=== PATIENT | female | born 1975 | race Caucasian/White ===

== ENCOUNTER 2024-03-31 19:54 | Emergency (ER) | payer OTHER, SELFPAY ==
[2024-03-31 20:03] VITALS: BP 134/66
--- NOTE | 2024-04-01 01:05 | EDRN ---
multiple issues past that. Pt feels pressure L side of head. Pt c/o nausea. Pt has L side head and posterior neck and even inside throat. Pt has a normal twitch. Tenderness to palp L side.
[2024-04-01 01:09] VITALS: BP 134/76
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
[2024-04-01 01:11] VITALS: BMI 22.6
[2024-04-01] MEDS: FLEXERIL 10 MG PO (03:07)
[2024-04-01 03:10] VITALS: BP 129/73
== END 2024-04-01 03:10 | disposition home or self-care (01) ==
LOC: EMR 19:54
PROVIDERS: EMERGENCY PHYSICIAN Student in an Organized Health Care Education/Training Program; FAMILY PHYSICIAN Student in an Organized Health Care Education/Training Program
DX: M43.6 Torticollis (principal); R51.9 Headache, unspecified; F43.10 Post-traumatic stress disorder, unspecified; F41.9 Anxiety disorder, unspecified; F90.9 Attention-deficit hyperactivity disorder, unspecified type; Z82.49 Family history of ischemic heart disease and other diseases of the circulatory system; Z83.3 Family history of diabetes mellitus; Z90.49 Acquired absence of other specified parts of digestive tract
CPT/HCPCS: 99282

== ENCOUNTER 2024-09-01 10:37 | Emergency (ER) | payer OTHER, SELFPAY ==
[2024-09-01 10:44] VITALS: BP 144/90
[2024-09-01 11:16] VITALS: BP 100/64
[2024-09-01 11:19] LABS: % Basophils 0.3 % (0-2); % Eosinophils 0.6 % (0-6); % Immature Granulocytes 0.1 % (0-0.5); % Lymphocytes 17.9 % (20.5-51.1); % Monocytes 4.9 % (1.7-9.3); % Neutrophils 76.2 % (42.2-75.2); Absolute Lymphocytes 1.3 10^3/uL (1.2-3.4); Absolute Monocytes 0.4 10^3/uL (0.1-0.6); Absolute Neutrophils 5.5 10^3/uL (1.4-6.5); Hematocrit 39.8 % (37.0-47.0); Hemoglobin 13.7 g/dL (12.0-16.0); Mean Corp Hgb Conc. 34.4 g/dL (33.0-37.0); Mean Corpuscular Hgb 29.7 pg (27.0-31.0); Mean Corpuscular Volume 86.1 fL (81.0-99.0); Mean Platelet Volume 11.4 fL (7.4-10.4); Nucleated Red Blood Cells % 0 %; Platelet Count 202 10^3/uL (130-400); Red Blood Cell Count 4.62 10^6/uL (4.20-5.40); White Blood Cell Count 7.2 10^3/uL (4.8-10.8)
[2024-09-01 11:33] LABS: ALT (SGPT) 11 U/L (0-35); AST (SGOT) 20 U/L (14-36); Albumin 4.5 g/dl (3.5-5.0); Alkaline Phosphatase 52 U/L (38-126); Blood Urea Nitrogen 9 mg/dl (7-17); Calcium 9.3 mg/dl (8.4-10.2); Carbon Dioxide 26 mmol/L (22-30); Chloride 105 mmol/L (98-107); Glucose 104 mg/dl (70-99); Potassium 4.5 mmol/L (3.5-5.1); Sodium 138 mmol/L (135-145); Total Bilirubin 0.5 mg/dl (0.2-1.3); Total Protein 7.1 g/dl (6.3-8.2); eGFR > 60.00
[2024-09-01 11:41] VITALS: BMI 21.0
[2024-09-01 12:30] LABS: Troponin I < 0.012 ng/ml
--- NOTE | 2024-09-01 13:52 | ED.GENMED ---
History of Present Illness
General
Chief Complaint: Chest Pain
Source: patient
Exam Limitations: none
Time Seen by Provider: 09/01/24 13:17
History of Present Illness
History of Present Illness:
49-year-old female otherwise medically healthy presents with complaints of chest tightness and difficulty taking a deep breath onset last evening. She does have history of anxiety. She is on a control patch. No recent travel or surgery. No
leg swelling or calf pain. This discomfort started when she found out her was having an affair. The pain does not radiate to the back but is centered in the chest that occasionally radiates to the left side. She also felt that her heart
rate was fast and she was having extra strong heartbeats. She took an Inderal last evening with some relief. She did screen positive for depression at triage however she has no thoughts of hurting yourself. She is going through a rough time and
would prefer not to be experiencing this however she denies any thoughts of harming herself or others.
Past History
Past History
ED Past Medical History: Other (Ectopic pregnancies) and Other (PTSD, questionable of a possible autoimmune disease which is being worked up by rheumatology)
ED Past Surgical History: Other; Negative Appendectomy, Bowel resection or Cholecystectomy
Social History
Tobacco: Non-smoker
Alcohol: Occasional
Drug: None
Personal:
Living: with family
Employment: Employed
Family History
Family History: Other (CAD, diabetes, rheumatoid arthritis)
Phy Exam
Physical Exam
Physical Exam:
General: Well-appearing female no acute respiratory distress
HEENT: Normocephalic atraumatic
Heart: Regular rate and rhythm no murmurs lungs: Clear no wheeze
Extremities: No cyanosis or edema no calf tenderness
Psychiatric exam: Calm and cooperative denying thoughts of harming self or others. She does admit to depression. She admits to anxiety.
Scores
Heart Score for Chest Pain Patients
STEMI patient?: No
History: Slightly or Non-Suspicious
ECG: Normal
Age: >45 - <65 years
Risk Factors: No Risk Factors
Troponin: </= Normal Limit
Heart Score for Chest Pain Patients: 1
Heart Score Risk: 2.5% MACE over next 6 weeks
Course
Orders/Labs/Results
Orders:
Orders
09/01/24 10:38
Electrocardiogram (*1) Urgent
Reason for Study: Chest Pain
EKG- Treatment ONCE
09/01/24 10:49
1:1 Observation - Suicide/ Violent Behavior As Directed
Crisis Consult Urgent
Reason for Consult: depression
09/01/24 10:57
Complete Blood Count/With Diff Urgent
Comprehensive Metabolic Panel Urgent
Troponin I Urgent
09/01/24 14:22
D-Dimer Urgent
Abnormal Lab Results
09/01/24
10:57
MPV 11.4 H fL
(7.4-10.4)
Neutrophils % 76.2 H %
(42.2-75.2)
Lymphocytes % 17.9 L %
(20.5-51.1)
Glucose 104 H mg/dl
(70-99)
09/01/24 10:57
09/01/24 10:57
Vital Signs
Initial and Last Documented VS:
Initial Vital Signs
Temp Pulse Resp BP Pulse Ox
98.4 F 74 18 144/90 99
09/01/24 10:44 09/01/24 10:44 09/01/24 10:44 09/01/24 10:44 09/01/24 10:44
Last Documented Vital Signs
Temp Pulse Resp BP Pulse Ox
98.1 F 86 22 100/64 100
09/01/24 11:16 09/01/24 11:16 09/01/24 11:16 09/01/24 11:16 09/01/24 11:16
MDM/Problems Addressed
Differential Diagnosis Includes:
Patient here with chest pain. Consider ACS versus PE versus anxiety. No respiratory distress currently heart rate is in the 60s oxygen 99% however she is on control patch. D-dimer is pending.
*Critical Care Note
Total Time (30-74mins, 75-104mins- exclusive of procedures): Not Applicable
Update Note
Update Note:
Troponin and D-dimer undetectable. Symptoms more consistent with stress or anxiety response. Do not suspect ACS dissection PE. Vital signs are stable. No indication for admission or further testing. Stable for discharge
ED Attending Note
-
Portions of this chart may have been created with voice recognition software.� Occasional wrong word or��sound alike� substitutions may have occurred due to the inherent limitations of voice recognition software.
Discharge Plan
Departure
Patient Disposition: Home (Routine Discharge)
Date of Disposition: 09/01/24
Time of Disposition: 15:29
Patient with high blood pressure during this ER visit?: No
Discharge Problem:
Chest pain
Instructions: Chest Pain PCP Follow Up
Prescriptions:
No Action
Adderall:
30 mg PO DAILY
sertraline 50 MG tablet
50 mg PO DAILY
Control Patch
1 patch transdermal .WEEKLY
cyclobenzaprine 10 MG tablet
10 mg PO TIDPRN PRN (Reason: 12) Qty: 9 0RF
tramadol 50 MG tablet
50 mg PO Q6HPRN PRN (Reason: pain) Qty: 10 0RF
tramadol [Ultram] 50 MG tablet
50 mg PO BID PRN (Reason: pain) Qty: 7 0RF
ondansetron 4 MG tablet,disintegrating
4 mg PO TIDPRN PRN (Reason: nausea/vomiting) Qty: 7 0RF
cyclobenzaprine 5 mg tablet
5 mg PO BID PRN (Reason: Muscle spasm) Qty: 7 0RF
Referrals:
Courtney Dutton PA-C [Family Provider] -
Activity Restrictions/Additional Instructions:
Please return here for worsening symptoms otherwise follow-up with your doctor
Interventions
Interventions:
*Risk Screen - Suicide Last Done: 09/01/24 10:44
*General Assessment Last Done: 09/01/24 10:44
*Neglect/Abuse Screening Last Done: 09/01/24 10:44
*ED COVID-19 Vaccine History Last Done: 09/01/24 11:41
ED- Cardiac Assessment Last Done: 09/01/24 13:23
ED-Psychological Assessment Last Done: 09/01/24 13:25
Discharge Date and Time
Print Language: SYRIAN
[2024-09-01 15:16] LABS: D-Dimer < 0.27 ug/mlFEU (0.00-0.50)
[2024-09-01 16:18] VITALS: BP 103/62
== END 2024-09-01 16:21 | disposition home or self-care (01) ==
LOC: EMR 10:37
PROVIDERS: Emergency Medicine; Physician Assistant; EMERGENCY PHYSICIAN Emergency Medicine; FAMILY PHYSICIAN Physician Assistant Medical
DX: R07.89 Other chest pain (principal); F41.8 Other specified anxiety disorders; F43.10 Post-traumatic stress disorder, unspecified; Z82.49 Family history of ischemic heart disease and other diseases of the circulatory system; Z83.3 Family history of diabetes mellitus; Z90.49 Acquired absence of other specified parts of digestive tract
CPT/HCPCS: 99283; 80053; 84484; 85025; 85379; 93005

== ENCOUNTER → 2024-11-25 13:02 | Outpatient (REF) | payer OTHER, SELFPAY | LOC: RCS 13:02 | PROVIDERS: ATTENDING PHYSICIAN Internal Medicine Cardiovascular Disease; FAMILY PHYSICIAN Internal Medicine | DX: R07.89 Other chest pain (principal); I45.10 Unspecified right bundle-branch block | CPT/HCPCS: 93017 ==

== ENCOUNTER → 2024-12-02 13:04 | Outpatient (REF) | payer OTHER, SELFPAY | LOC: RCS 13:04 | PROVIDERS: ATTENDING PHYSICIAN Internal Medicine Cardiovascular Disease; FAMILY PHYSICIAN Physician Assistant Medical | DX: R07.89 Other chest pain (principal) | CPT/HCPCS: 93306 ==

== ENCOUNTER → 2024-12-04 09:45 | Outpatient (REF) | payer OTHER, SELFPAY | LOC: RCS 09:45 | PROVIDERS: ATTENDING PHYSICIAN Internal Medicine Cardiovascular Disease; FAMILY PHYSICIAN Physician Assistant Medical | DX: R00.2 Palpitations (principal) | CPT/HCPCS: 93225; 93226 ==

== ENCOUNTER 2025-01-25 06:27 | Day surgery (SDC) | payer OTHER, SELFPAY | END 2025-01-25 14:19 | disposition home or self-care (01) | LOC: GI 06:27 | PROVIDERS: ATTENDING PHYSICIAN Internal Medicine Gastroenterology | DX: Z12.11 Encounter for screening for malignant neoplasm of colon (principal); R19.5 Other fecal abnormalities; K64.8 Other hemorrhoids; D12.3 Benign neoplasm of transverse colon; D12.5 Benign neoplasm of sigmoid colon; K63.5 Polyp of colon | CPT/HCPCS: 45385; 88305 ==

== ENCOUNTER 2025-03-31 18:38 | Emergency (ER) | payer OTHER, SELFPAY ==
[2025-03-31 18:39] VITALS: BP 119/77
[2025-03-31 20:24] VITALS: BP 112/77
[2025-03-31 20:25] VITALS: BMI 23.5
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
[2025-03-31] MEDS: TORADOL 30 MG IM (20:53)
[2025-03-31 21:00] VITALS: BP 126/77
== END 2025-03-31 22:00 | disposition home or self-care (01) ==
LOC: EMR 18:38
PROVIDERS: EMERGENCY PHYSICIAN Student in an Organized Health Care Education/Training Program; FAMILY PHYSICIAN Physician Assistant Medical
DX: S29.012A Strain of muscle and tendon of back wall of thorax, initial encounter (principal); X50.0XXA Overexertion from strenuous movement or load, initial encounter
CPT/HCPCS: 96372; 99284; 72072

== ENCOUNTER 2025-04-01 16:56 | Emergency (ER) | payer OTHER, SELFPAY ==
[2025-04-01] VITALS (7 sets, daily range): BP systolic 98–123; BP diastolic 55–82; BMI 23.3
--- NOTE | 2025-04-01 18:48 | ED.GENMED ---
History of Present Illness
General
Chief Complaint: Back Pain
Source: patient
Time Seen by Provider: 04/01/25 18:09
History of Present Illness
History of Present Illness:
49-year-old female presenting back to the emergency department after being seen yesterday for middle back pain that started earlier in the week after she lifted a heavy bag of dirt feeling a sudden sharp pain within the mid back that radiated down
her back with pain that has been constant since then, worse with movement, unable to sit still. Today she feels more of a burning sensation within the middle of her back but states the pain is not radiating anywhere. She takes Flexeril on a
regular basis due to restless leg and muscle spasms at baseline as well as received a prescription for diclofenac which she took earlier this morning but without any relief. There are otherwise no other symptoms associated including chest pain,
shortness of breath, cough, fevers or infectious symptoms, traumatic injuries, focal weakness or numbness. She also is denying any red flag symptoms including substance abuse history, abnormal weight loss, history of malignancies or uncontrolled
diabetes.
Past History
Past History
ED Past Medical History: Other (Ectopic pregnancies) and Other (PTSD, questionable of a possible autoimmune disease which is being worked up by rheumatology)
ED Past Surgical History: Other; Negative Appendectomy, Bowel resection or Cholecystectomy
Social History
Tobacco: Non-smoker
Alcohol: Occasional
Drug: None
Personal:
Living: with family
Employment: Employed
Family History
Family History: Other (CAD, diabetes, rheumatoid arthritis)
Review of Systems
Review of Systems
All Other Systems: ROS reviewed and negative except as documented in HPI and ROS
Phy Exam
Physical Exam
Physical Exam:
GENERAL: Alert , in no apparent distress but is laying on her side and appears uncomfortable with movements
HEAD: Normocephalic atraumatic
EYE: conjunctiva clear
NECK: Supple
ENT: o/p clr, mmm.
CARDIAC: Regular rate and rhythm
LUNGS: Clear breath sounds bilaterally, no acute respiratory distress, no wheezes/rales/rhonchi
BACK: Tenderness within the midline at the level of T7-T8, no overlying erythema
NEUROLOGICAL: Alert and oriented
SKIN: Warm and dry, skin intact.
MUSCULOSKELETAL: well perfused.
PSYCH: Normal and appropriate interaction.
Course
Orders/Labs/Results
Orders:
Orders
04/01/25 18:37
CT Thoracic Spine W/o Iv Contr Urgent
Comment:
Reason For Exam: severe mid back pain following lifting
Ketorolac [Toradol] 30 mg IV NOW STA
Lidocaine [Lidocaine 4% Patch] 1 patch TOPICAL NOW STA
Apply Lidocaine patch(s) to:: mid back
Oxycodone/Acetaminophen [Percocet 5/325] 1 tablet PO NOW STA
04/01/25 19:53
Electrocardiogram (*1) Urgent
Reason for Study: Other
Other Reason for Exam: back pain
EKG- Treatment ONCE
HYDROmorphone [Dilaudid] 0.5 mg IV NOW STA
04/01/25 20:07
Complete Blood Count/With Diff Urgent
Comprehensive Metabolic Panel Urgent
Troponin I Urgent
04/01/25 21:01
Ondansetron Injectable [Zofran] 4 mg .ROUTE .STK-MED ONE
04/01/25 21:03
Ondansetron Injectable [Zofran] 4 mg IV NOW STA
04/01/25 22:06
Dexamethasone Sod Phosphate [Decadron] 20 mg .ROUTE .STK-MED ONE
04/01/25 22:07
Dexamethasone Sod Phosphate [Decadron] 10 mg 0.9% Sodium Chloride 50 ml [Nss] 50 ml IV ONCE
04/01/25 22:08
Dexamethasone Sod Phosphate [Decadron] 10 mg IV NOW STA
Abnormal Lab Results
04/01/25
20:07
MPV 10.9 H fL
(7.4-10.4)
04/01/25 20:07
04/01/25 20:07
Vital Signs
Initial and Last Documented VS:
Initial Vital Signs
Temp Pulse Resp BP Pulse Ox
98.7 F 88 18 123/82 98
04/01/25 17:03 04/01/25 17:03 04/01/25 17:03 04/01/25 17:03 04/01/25 17:03
Last Documented Vital Signs
Temp Pulse Resp BP Pulse Ox
98.7 F 81 18 116/61 100
04/01/25 17:03 04/01/25 21:00 04/01/25 20:00 04/01/25 22:00 04/01/25 22:15
MDM/Problems Addressed
Differential Diagnosis Includes:
Ligamentous sprain
Compression fracture
Muscle strain
Less concern for an acute infectious etiology or spinal cord injury
Shingles
MDM/Problems Addressed:
49-year-old female presenting to the ER for evaluation of continued back pain after being seen here yesterday. Symptoms are unchanged but not any better. Continues to appear uncomfortable on exam. X-ray reviewed from yesterday does not show any
acute abnormalities. Given the continued symptoms will obtain CT to further evaluate. Discussed with patient she may need MRI to further assess but this would likely need to be done on an outpatient basis. Will treat pain here with Toradol,
Percocet and topical lidocaine. Reassessment following
*Radiology
Radiology exam reviewed: radiology read reviewed
*Pulse Oximetry
SaO2: 100
Oxygen Mode of Delivery: Room air
Patient hypoxic: no
*EKG
Heart Rate: 63
Rate: normal
Rhythm: sinus
Ischemia: no ischemia
*Critical Care Note
Total Time (30-74mins, 75-104mins- exclusive of procedures): Not Applicable
Data Reviewed
Review of Other/Old Records Reveals: Radiology Studies
Comment
Comment:
Reevaluation following medication patient still with pain. I did add on additional 0.5 mg of Dilaudid for additional pain control. While this did help the patient's pain she did develop some nausea with this so additional 4 mg Zofran IV was
ordered.
Patient Management
Escalation/DeEscalation of care consider admission/obs:
CT scan is without any acute pathologies. Labs reassuring. Patient does note improved pain. Discussed with patient that she would likely need to follow-up on an outpatient basis and may still need more advanced imaging if symptoms persist. She
expressed understanding. Stable for discharge home.
ED Attending Note
-
Portions of this chart may have been created with voice recognition software.� Occasional wrong word or��sound alike� substitutions may have occurred due to the inherent limitations of voice recognition software.
Discharge Plan
Departure
Patient Disposition: Home (Routine Discharge)
Date of Disposition: 04/01/25
Time of Disposition: 21:41
Patient with high blood pressure during this ER visit?: No
Discharge Problem:
Dorsalgia
Instructions: Upper Back Pain (DC)
Prescriptions:
New
oxycodone-acetaminophen [Percocet] 5-325 mg tablet
1 tab PO Q6HPRN PRN (Reason: pain) Qty: 8 0RF
methylprednisolone [Medrol (Mark)] 4 mg tablets,dose pack
4 mg PO DIRECTED Qty: 21 0RF
No Action
Adderall:
30 mg PO DAILY
sertraline 50 MG tablet
50 mg PO DAILY
Control Patch
1 patch transdermal .WEEKLY
cyclobenzaprine 10 MG tablet
10 mg PO TIDPRN PRN (Reason: 12) Qty: 9 0RF
tramadol 50 MG tablet
50 mg PO Q6HPRN PRN (Reason: pain) Qty: 10 0RF
tramadol [Ultram] 50 MG tablet
50 mg PO BID PRN (Reason: pain) Qty: 7 0RF
ondansetron 4 MG tablet,disintegrating
4 mg PO TIDPRN PRN (Reason: nausea/vomiting) Qty: 7 0RF
cyclobenzaprine 5 mg tablet
5 mg PO BID PRN (Reason: Muscle spasm) Qty: 7 0RF
diclofenac sodium 75 mg tablet,delayed release (DR/EC)
75 mg PO BID Qty: 20 0RF
Referrals:
Courtney Dutton PA-C [Family Provider, Internal Medicine]
Interventions
Interventions:
*Risk Screen - Suicide Last Done: 04/01/25 16:56
*General Assessment Last Done: 04/01/25 16:56
*Neglect/Abuse Screening Last Done: 04/01/25 16:56
*ED- Fall Risk Assessment Last Done: 04/01/25 17:49
*ED COVID-19 Vaccine History Last Done: 04/01/25 17:49
*Nursing Disposition Last Done: 04/01/25 22:38
ED-Musculoskeletal Assessment Last Done: 04/01/25 17:49
Discharge Date and Time
Discharge Date/Time: 04/01/25 22:38
Print Language: TELUGU
[2025-04-01] MEDS: PERCOCET 5/325 1 TABLET PO (19:02)
[2025-04-01] MEDS: TORADOL 30 MG IV (19:03)
[2025-04-01] MEDS: LIDOCAINE 4% PATCH 1 PATCH TOPICAL (19:03)
[2025-04-01 20:14] LABS: Hematocrit 37.2 % (37.0-47.0); Hemoglobin 12.7 g/dL (12.0-16.0); Mean Corp Hgb Conc. 34.1 g/dL (33.0-37.0); Mean Corpuscular Volume 85.7 fL (81.0-99.0); Nucleated Red Blood Cells % 0 %; Platelet Count 148 10^3/uL (130-400); Red Cell Dist. Width 12.2 % (11.5-14.5)
[2025-04-01] MEDS: DILAUDID 0.5 MG IV (20:17)
[2025-04-01 20:33] LABS: ALT (SGPT) 11 U/L (0-35); AST (SGOT) 20 U/L (14-36); Albumin 4.3 g/dl (3.5-5.0); Alkaline Phosphatase 40 U/L (38-126); Blood Urea Nitrogen 10 mg/dl (7-17); Calcium 9.6 mg/dl (8.4-10.2); Carbon Dioxide 26 mmol/L (22-30); Chloride 107 mmol/L (98-107); Estimated Creatinine Clearance 83 ml/min; Glucose 75 mg/dl (70-99); Potassium 4.1 mmol/L (3.5-5.1); Sodium 136 mmol/L (135-145); Total Protein 6.9 g/dl (6.3-8.2); eGFR > 60.00
[2025-04-01 20:37] LABS: Troponin I < 0.012 ng/ml
[2025-04-01] MEDS: ZOFRAN 4 MG IV (21:03)
[2025-04-01] MEDS: DECADRON 10 MG IV (22:09)
== END 2025-04-01 22:38 | disposition home or self-care (01) ==
LOC: EMR 16:56
PROVIDERS: Physician Assistant Medical; EMERGENCY PHYSICIAN Student in an Organized Health Care Education/Training Program; FAMILY PHYSICIAN Physician Assistant Medical
DX: M54.6 Pain in thoracic spine (principal); X50.0XXA Overexertion from strenuous movement or load, initial encounter
CPT/HCPCS: 96374; 96375; 99284; 72128; 80053; 84484; 85025; 93005